=== PATIENT | female | born 1965 | race African-American/Black ===

== ENCOUNTER 2016-06-13 11:55 | Emergency (ER) | payer MEDICAID, OTHER ==
[~2016-06-13] VITALS: Ht 167.6 cm; Wt 78.0 kg
[2016-06-13 11:56] VITALS: BP 172/85; PULSE 72; RESP 20; TEMP 98.5; O2SAT 100
[2016-06-13] MEDS ORDERED: ERYTOIN10 EACH EYE (12:15)
[2016-06-13] MEDS ORDERED: IBUP800T23 PO (12:15)
--- NOTE | 2016-06-13 12:22 | PD ---
HPI Chief Complaint: Eye Problems/Injury Time Seen by Provider: 12:13 Travel History International Travel<30 days: No Contact w/Intl Traveler<30days: No Traveled to known affect area: No History of Present Illness HPI 51-year-old female presents to the emergency Department with complaint of bilateral eye pain that started this morning. She slept in her contact fussing when she removed them this morning she started having eye pain. She says the contacts were more difficult to remove the normal. She has not taken any medications or tried any treatments to alleviate her symptoms. Denies change in vision. Reports photophobia to bilateral eyes. Reports clear drainage. Denies fever, chills, nausea, vomiting. No known allergies. No other medical complaints.. No other modifying factors or associated signs and symptoms. PFSH Social History Tobacco Use: No Allergies-Medications (Allergen,Severity, Reaction): Coded Allergies: No Known Allergies (Verified , 06/13/16) Reported Meds & Prescriptions Reported Meds & Active Scripts Active Ibuprofen 800 Mg Tab 800 Mg PO Q6HR PRN Erythromycin Opth Oint 5 Mg/Gm Oint 1 Applic EACH EYE QID 7 Days Review of Systems Except as stated in HPI: all other systems reviewed are Neg Physical Exam Narrative GENERAL: Well-nourished, well-developed patient, in no acute distress; afebrile , nontoxic-appearing SKIN: Warm and dry. HEAD: Atraumatic. Normocephalic. EYES: Pupils equal and round at 3 mm with brisk reaction. PERRLA. EOMI. visual acuity 20/40 bilateral. Bilateral lid eversion with no foreign body noted. Bilateral eye with scleral erythema and mild lid edema. No orbital tenderness, erythema or cellulitis. Bilateral eye with photophobia. No consensual photophobia. No scleral icterus. Clear drainage. Ivan lamp exam reveals minimal, multiple bilateral corneal abrasions over the iris and pupil areas consistent w/ contact lens injury. ENT: Mucosa pink and moist. Airway patent. NECK: Trachea midline. CARDIOVASCULAR: Regular rate. RESPIRATORY: No accessory muscle use. GASTROINTESTINAL: Round. NEUROLOGICAL: Awake and alert. Oriented 3. No obvious cranial nerve deficits. Motor grossly within normal limits. Normal speech. PSYCHIATRIC: Appropriate mood and affect; insight and judgment normal. Data Data Last Documented VS Vital Signs Date Time Temp Pulse Resp B/P Pulse Ox O2 Delivery O2 Flow Rate FiO2 4/23/17 11:56 98.5 72 20 172/85 100 Room Air Orders Ibuprofen (Motrin) (06/13/16 12:30) Mandatory Outpatient Referral (06/13/16 12:37) MDM Medical Decision Making Medical Screen Exam Complete: Yes Emergency Medical Condition: Yes Medical Record Reviewed: Yes Differential Diagnosis Corneal abrasion, corneal irritation, corneal ulceration Narrative Course 51-year-old female physical exam and ivan lamp exam reveals bilateral corneal abrasions over the iris and pupil consistent with area of contact lenses. There are minimal, multiple small areas that are consistent with abrasions. Ibuprofen administered in the ER. Erythromycin ointment and ibuprofen prescribed for home. Mandatory referral to ophthalmology ordered as patient does not have insurance and needs follow-up. Instructed patient to follow up with ophthalmology in one day. Patient verbalizes understanding and agreement with treatment plan. Patient is medically cleared and stable for discharge. Discussed reasons to return to the emergency department. Instructed patient to follow up with primary care provider. Patient agrees with treatment plan. The patients vital signs are stable and the patient is stable for outpatient follow- up and treatment. Patient discharged home, stable and in no acute distress. Diagnosis Primary Impression: Corneal abrasion of both eyes due to contact lens Referrals: [employer] Primary Care Physician Patient Instructions: Corneal Abrasion (ED), General Instructions Departure Forms: Tests/Procedures, Work Release Enter return to work date: Jun 15, 2016 Additional Instructions: Ibuprofen or Tylenol as directed and as needed to reduce pain Do not patch the eye Do not rub the eye Sunglasses to avoid light Refrigerated eye drops as needed to reduce pain Cool compresses to the eye as needed to reduce pain Follow-up with ophthalmology on Tuesday Primary care provider Return to the emergency department immediately with worsening of symptoms Med/Other Pt SpecificInfo: Prescription(s) given Scripts Ibuprofen 800 Mg Qvm854 Mg PO Q6HR PRN (PAIN) #30 TAB Ref 0 Prov:Mile Tang 06/13/16 Erythromycin Opth Oint 5 Mg/Gm Oint1 Applic EACH EYE QID 7 Days Ref 0 Prov:Mile Tang 06/13/16 Disposition: 01 DISCHARGE HOME Condition: Stable Mile Tang Jun 13, 2016 12:22
[2016-06-13] MEDS ORDERED: IBUPROFEN 800 MG TAB PO ONE (12:30)
== END 2016-06-13 13:05 | disposition home or self-care (01) ==
LOC: NEPK 11:55
DX: H18.823 Corneal disorder due to contact lens, bilateral (principal)
CPT/HCPCS: 99283